=== PATIENT | male | born 1995 | race Caucasian/White ===

== ENCOUNTER 2021-12-10 19:07 | Inpatient (IN) ==
[2021-12-10] MEDS ORDERED: Lidocaine 1% 20 ML MDV INFILT ONE (19:46)
[2021-12-10] MEDS ORDERED: *HR* Propofol 200 MG/20 ML VIAL IVP ONE (20:24)
[2021-12-10] MEDS ORDERED: 0.9 % Sodium Chloride 1,000 ML ONE (20:33)
[2021-12-10] MEDS ORDERED: *HR* Midazolam HCl 2 MG/2 ML VIAL ONE (21:37)
[2021-12-10] MEDS ORDERED: *HR* Midazolam HCl 5 MG/ML VIAL IVP ONE (21:55)
[2021-12-10] MEDS ORDERED: diazePAM 10 MG/2 ML SYRINGE IVP ONE (22:07)
[2021-12-10] MEDS ORDERED: *HR* HYDROmorphone (PF) 1 MG/ML SYRINGE IVP ONE (22:08)
[2021-12-10 22:33] LABS: Basophils % 0.5 %; Eosinophils # 0.2 K/mcL (0.0-0.6); Eosinophils % 2.2 %; Hematocrit 46.7 % (37.5-50.1); Hemoglobin 15.6 g/dL (12.9-16.9); Immature Granulocytes % 0.4 % (0-4); Lymphocytes # 2.7 K/mcL (0.6-4.6); Lymphocytes % 31.3 %; Mean Corpuscular HGB Conc 33.4 g/dL (31.6-35.5); Mean Corpuscular Hemoglobin 29.3 pg (28.0-33.3); Mean Corpuscular Volume 87.6 fL (83.0-100.0); Mean Platelet Volume 9.9 fL (9.4-12.4); Monocytes # 0.6 K/mcL (0.0-1.3); Monocytes % 6.9 %; Platelet Count 221 K/mcL (140-400); Red Blood Count 5.33 M/mcL (4.19-5.50); Red Cell Distribution Width 12.8 % (11.5-14.5); Segmented Neutrophils % 58.7 %; White Blood Count 8.5 K/mcL (4.3-11.1)
[2021-12-10 22:53] LABS: BUN/Creatinine Ratio 15 (6-26); Blood Urea Nitrogen 14 mg/dL (6-20); Calcium 8.8 mg/dL (8.6-10.3); Carbon Dioxide 26 mEq/L (23-29); Chloride 107 mEq/L (98-107); Glucose 94 mg/dL (70-105); Osmolality,Calculated 290 (280-300); Sodium 140 mEq/L (136-145); eGFR For African Americans > 60 (> 60); eGFR For Non-African Americans > 60 (> 60)
[2021-12-10] MEDS ORDERED: Naloxone 0.4 MG/ML INJ IVP PRN (23:54)
[2021-12-10] MEDS ORDERED: Melatonin 3 MG TABLET PO PRN (23:54)
[2021-12-11] MEDS ORDERED: *HR* HYDROmorphone (PF) 1 MG/ML SYRINGE IVP ONE (00:03)
[2021-12-11 02:51] LABS: Hemoglobin 16.2 g/dL (12.9-16.9); Mean Corpuscular HGB Conc 33.8 g/dL (31.6-35.5); Mean Corpuscular Hemoglobin 29.7 pg (28.0-33.3); Mean Corpuscular Volume 88.1 fL (83.0-100.0); Mean Platelet Volume 10.4 fL (9.4-12.4); Platelet Count 242 K/mcL (140-400); Red Blood Count 5.45 M/mcL (4.19-5.50); Red Cell Distribution Width 12.8 % (11.5-14.5)
[2021-12-11 02:58] LABS: INR 1.2; Prothrombin Time 12.9 Seconds (9.4-12.1)
[2021-12-11 03:06] LABS: White Blood Count 15.7 K/mcL (4.3-11.1)
[2021-12-11 03:09] LABS: BUN/Creatinine Ratio 16 (6-26); Blood Urea Nitrogen 14 mg/dL (6-20); Carbon Dioxide 24 mEq/L (23-29); Chloride 107 mEq/L (98-107); Glucose 109 mg/dL (70-105); Osmolality,Calculated 289 (280-300); Potassium 4.1 mEq/L (3.5-5.1); Sodium 139 mEq/L (136-145); eGFR For African Americans > 60 (> 60); eGFR For Non-African Americans > 60 (> 60)
[2021-12-11] MEDS ORDERED: Ondansetron ODT 4 MG TAB.RAPDIS SL PRN (03:45)
[2021-12-11] MEDS ORDERED: Doxycycline 800 MG, Syringe LUER-LOK 1 EACH in 0.9 % Sodium Chloride 50 ML IX ONE (09:12)
[2021-12-11] MEDS ORDERED: *HR* FentaNYL (PF) 100 MCG/2 ML VIAL ONE ×2 (09:13→10:02)
[2021-12-11] MEDS ORDERED: *HR* Midazolam HCl 2 MG/2 ML VIAL ONE (09:14)
[2021-12-11] MEDS ORDERED: *HR* Propofol 200 MG/20 ML VIAL IVP ONE ×2 (09:15→10:06)
[2021-12-11] MEDS ORDERED: *HR* Rocuronium Bromide 50 MG/5 ML VIAL ONE (09:18)
[2021-12-11] MEDS ORDERED: Ondansetron 4 MG/2 ML VIAL ONE (09:18)
[2021-12-11] MEDS ORDERED: Lidocaine -MPF 2% 2 ML VIAL ONE (09:18)
[2021-12-11] MEDS ORDERED: Ketorolac 30 MG/ML VIAL ONE (09:58)
[2021-12-11] MEDS ORDERED: Sugammadex Sodium 200 MG/2 ML VIAL IV ONE (10:17)
[2021-12-11] MEDS ORDERED: *HR* HYDROMORPHONE 2 MG/ML VIAL ONE (10:23)
[2021-12-11] MEDS ORDERED: Naloxone 0.4 MG/ML INJ IVP PRN ×2 (10:49→11:45)
[2021-12-11] MEDS ORDERED: Ondansetron 4 MG/2 ML VIAL IVP PRN (10:49)
[2021-12-11] MEDS ORDERED: *HR* HYDROcodone/Acet 5/325 mg TABLET PO PRN ×3 (10:49→14:05)
[2021-12-11] MEDS ORDERED: 0.9 % Sodium Chloride 1,000 ML IVC SCH (11:00)
[2021-12-11] MEDS: *HR* HYDROmorphone (PF) 1 MG/ML SYRINGE IVP PRN ×4 (11:00→19:48)
[2021-12-11] MEDS: *HR* FentaNYL (PF) 100 MCG/2 ML VIAL IVP PRN ×2 (11:08→11:13)
[2021-12-11] MEDS ORDERED: Ringers Solution, Lactated 1,000 ML ONE (11:24)
[2021-12-11] MEDS: Ipratropium/Albuterol Neb 3 ML IH SCH ×6 (11:34→23:51)
[2021-12-11] MEDS ORDERED: Melatonin 3 MG TABLET PO PRN (11:45)
[2021-12-11] MEDS: 0.9 % Sodium Chloride 1,000 ML IVC SCH (12:03)
[2021-12-11] MEDS ORDERED: *HR* Heparin 5,000 UNIT/ML VIAL SQ SCH (14:00)
[2021-12-11] MEDS ORDERED: *HR* OxyCODONE Immed Rel 5 MG TABLET PO PRN (14:03)
[2021-12-11] MEDS ORDERED: Gabapentin 300 MG CAPSULE PO SCH (15:00)
[2021-12-11] MEDS: Gabapentin 300 MG CAPSULE PO SCH ×2 (15:43→19:51)
[2021-12-11] MEDS: *HR* Heparin 5,000 UNIT/ML VIAL SQ SCH ×2 (15:43→21:32)
[2021-12-11] MEDS: Ondansetron 4 MG/2 ML VIAL IVP PRN (16:10)
[2021-12-11] MEDS: Famotidine 20 MG TABLET PO SCH (19:50)
[2021-12-11] MEDS: Sennosides/Docusate Sodium TABLET PO SCH (19:51)
[2021-12-11] MEDS ORDERED: Famotidine 20 MG TABLET PO SCH (21:00)
[2021-12-11] MEDS ORDERED: Sennosides/Docusate Sodium TABLET PO SCH (21:00)
[2021-12-12] MEDS: 0.9 % Sodium Chloride 1,000 ML IVC SCH (00:26)
[2021-12-12] MEDS: Ondansetron 4 MG/2 ML VIAL IVP PRN (00:32)
[2021-12-12 00:50] LABS: Basophils % 0.1 %; Hematocrit 46.8 % (37.5-50.1); Hemoglobin 16.1 g/dL (12.9-16.9); Immature Granulocytes % 0.5 % (0-4); Lymphocytes # 1.9 K/mcL (0.6-4.6); Lymphocytes % 12.8 %; Mean Corpuscular HGB Conc 34.4 g/dL (31.6-35.5); Mean Corpuscular Hemoglobin 30.3 pg (28.0-33.3); Mean Corpuscular Volume 88.1 fL (83.0-100.0); Monocytes # 1.7 K/mcL (0.0-1.3); Monocytes % 11.4 %; Neutrophils # 11.1 K/mcL (1.6-8.9); Platelet Count 260 K/mcL (140-400); Red Blood Count 5.31 M/mcL (4.19-5.50); Red Cell Distribution Width 12.8 % (11.5-14.5); Segmented Neutrophils % 75.2 %; White Blood Count 14.8 K/mcL (4.3-11.1)
[2021-12-12 01:09] LABS: BUN/Creatinine Ratio 16 (6-26); Blood Urea Nitrogen 14 mg/dL (6-20); Calcium 9.5 mg/dL (8.6-10.3); Carbon Dioxide 26 mEq/L (23-29); Chloride 103 mEq/L (98-107); Glucose 129 mg/dL (70-105); Osmolality,Calculated 288 (280-300); Potassium 4.1 mEq/L (3.5-5.1); Sodium 138 mEq/L (136-145); eGFR For African Americans > 60 (> 60); eGFR For Non-African Americans > 60 (> 60)
[2021-12-12] MEDS: Ipratropium/Albuterol Neb 3 ML IH SCH ×6 (04:37→23:31)
[2021-12-12] MEDS: *HR* Heparin 5,000 UNIT/ML VIAL SQ SCH ×3 (06:44→21:38)
[2021-12-12] MEDS: *HR* HYDROmorphone (PF) 1 MG/ML SYRINGE IVP PRN ×2 (06:44→19:27)
[2021-12-12] MEDS: Sennosides/Docusate Sodium TABLET PO SCH ×2 (08:31→20:07)
[2021-12-12] MEDS: Famotidine 20 MG TABLET PO SCH ×2 (08:31→20:07)
[2021-12-12] MEDS ORDERED: SODIUM CHLORIDE 0.9% IVPB ONE (11:30)
[2021-12-12] MEDS ORDERED: DESMOPRESSIN ACETATE IVPB ONE (11:30)
[2021-12-13] MEDS: Ipratropium/Albuterol Neb 3 ML IH SCH ×3 (04:05→11:43)
[2021-12-13] MEDS: *HR* Heparin 5,000 UNIT/ML VIAL SQ SCH ×2 (06:08→13:46)
[2021-12-13 06:35] VITALS: TEMP 97.7
[2021-12-13] MEDS: Sennosides/Docusate Sodium TABLET PO SCH (08:14)
[2021-12-13] MEDS: Famotidine 20 MG TABLET PO SCH (08:14)
[2021-12-13 12:15] VITALS: O2SAT 97
[2021-12-13 13:34] VITALS: BP 134/83; PULSE 86
== END 2021-12-13 14:18 | disposition home or self-care (01) | DRG 120 ==
LOC: 2NNU 19:07 → EMEROOARM 19:07 → 2NNU 12-11 00:20 → SUATTDRO 12-11 11:40
PROVIDERS: ADMIT Internal Medicine; ATTEND Internal Medicine

== ENCOUNTER 2021-12-28 16:03 | Inpatient (IN) ==
[2021-12-28] MEDS ORDERED: Isovue-370 500 ML BOTTLE IVP ONE (16:58)
[2021-12-28] MEDS ORDERED: Morphine Sulfate 2 MG/ML SYRINGE IVP ONE (16:59)
[2021-12-28] MEDS ORDERED: Piperacillin/Tazobactam 3.375 GM in 0.9 % Sodium Chloride Mini Bag 100 ML IVPB ONE (16:59)
[2021-12-28 17:05] LABS: Basophils % 0.4 %; Eosinophils # 0.1 K/mcL (0.0-0.6); Eosinophils % 1.2 %; Hematocrit 44.3 % (37.5-50.1); Immature Granulocytes % 0.7 % (0-4); Lymphocytes # 2.4 K/mcL (0.6-4.6); Lymphocytes % 24.7 %; Mean Corpuscular HGB Conc 33.9 g/dL (31.6-35.5); Mean Corpuscular Hemoglobin 29.6 pg (28.0-33.3); Mean Corpuscular Volume 87.4 fL (83.0-100.0); Mean Platelet Volume 9.3 fL (9.4-12.4); Monocytes % 10.3 %; Neutrophils # 6.1 K/mcL (1.6-8.9); Platelet Count 359 K/mcL (140-400); Red Blood Count 5.07 M/mcL (4.19-5.50); Red Cell Distribution Width 13.1 % (11.5-14.5); Segmented Neutrophils % 62.7 %; White Blood Count 9.8 K/mcL (4.3-11.1)
[2021-12-28 17:12] LABS: INR 1.1; Prothrombin Time 12.1 Seconds (9.4-12.1)
[2021-12-28 17:15] LABS: Activated Partial Thrombo Time 36.1 Seconds (26.0-36.0)
[2021-12-28 17:21] LABS: BUN/Creatinine Ratio 19 (6-26); Blood Urea Nitrogen 15 mg/dL (6-20); Calcium 9.2 mg/dL (8.6-10.3); Carbon Dioxide 26 mEq/L (23-29); Chloride 102 mEq/L (98-107); Glucose 98 mg/dL (70-105); Osmolality,Calculated 285 (280-300); Potassium 3.7 mEq/L (3.5-5.1); Sodium 137 mEq/L (136-145); Troponin I < 0.03 ng/mL (< 0.04); eGFR For African Americans > 60 (> 60); eGFR For Non-African Americans > 60 (> 60)
[2021-12-28] MEDS ORDERED: Vancomycin 1,250 MG/262.5 ML IV.SOLN IVPB ONE (18:00)
[2021-12-28] MEDS ORDERED: Melatonin 3 MG TABLET PO PRN (18:46)
[2021-12-28] MEDS ORDERED: Naloxone 0.4 MG/ML INJ IVP PRN (18:46)
[2021-12-28] MEDS ORDERED: Ondansetron ODT 4 MG TAB.RAPDIS SL PRN (18:46)
[2021-12-28] MEDS ORDERED: Acetaminophen 325 MG TABLET PO PRN (18:46)
[2021-12-29 03:30] LABS: Hematocrit 41.7 % (37.5-50.1); Hemoglobin 13.7 g/dL (12.9-16.9); Immature Granulocytes % 0.7 % (0-4); Mean Corpuscular HGB Conc 32.9 g/dL (31.6-35.5); Mean Corpuscular Volume 88.3 fL (83.0-100.0); Mean Platelet Volume 9.5 fL (9.4-12.4); Platelet Count 323 K/mcL (140-400); Red Blood Count 4.72 M/mcL (4.19-5.50); Red Cell Distribution Width 13.1 % (11.5-14.5); Segmented Neutrophils % 50.7 %; White Blood Count 8.9 K/mcL (4.3-11.1)
[2021-12-29 03:31] LABS: Basophils # 0.1 K/mcL (0.0-0.2); Basophils % 0.7 %; Eosinophils # 0.2 K/mcL (0.0-0.6); Eosinophils % 2.5 %; Lymphocytes # 3.1 K/mcL (0.6-4.6); Lymphocytes % 35.1 %; Monocytes # 0.9 K/mcL (0.0-1.3); Monocytes % 10.3 %; Neutrophils # 4.5 K/mcL (1.6-8.9)
[2021-12-29 03:34] LABS: Prothrombin Time 11.6 Seconds (9.4-12.1)
[2021-12-29] MEDS: Vancomycin 1,250 MG/262.5 ML IV.SOLN IVPB SCH ×2 (03:43→11:33)
[2021-12-29 03:47] LABS: BUN/Creatinine Ratio 16 (6-26); Blood Urea Nitrogen 12 mg/dL (6-20); Calcium 8.5 mg/dL (8.6-10.3); Carbon Dioxide 26 mEq/L (23-29); Chloride 107 mEq/L (98-107); Glucose 104 mg/dL (70-105); Osmolality,Calculated 290 (280-300); Potassium 3.8 mEq/L (3.5-5.1); Sodium 140 mEq/L (136-145); eGFR For African Americans > 60 (> 60); eGFR For Non-African Americans > 60 (> 60)
[2021-12-29] MEDS ORDERED: Vancomycin 1,500 MG/265 ML IV.SOLN IVPB SCH (07:00)
[2021-12-29] MEDS: Piperacillin/Tazobactam 3.375 GM in 0.9 % Sodium Chloride Mini Bag 100 ML IVPB SCH ×4 (07:57→23:54)
[2021-12-29] MEDS: Vancomycin 1,500 MG/265 ML IV.SOLN IVPB SCH (19:36)
[2021-12-30] MEDS: Vancomycin 1,500 MG/265 ML IV.SOLN IVPB SCH ×2 (02:41→12:19)
[2021-12-30] MEDS: Piperacillin/Tazobactam 3.375 GM in 0.9 % Sodium Chloride Mini Bag 100 ML IVPB SCH (08:07)
[2021-12-30] MEDS ORDERED: *HR* Propofol 200 MG/20 ML VIAL IVP ONE (16:40)
[2021-12-30] MEDS ORDERED: *HR* Rocuronium Bromide 50 MG/5 ML VIAL ONE (16:44)
[2021-12-30] MEDS ORDERED: Ondansetron 4 MG/2 ML VIAL ONE (16:46)
[2021-12-30] MEDS ORDERED: Lidocaine HCL 4 ML Topical Solution (Laryng-O-Jet Kit Sterile Pak) TP ONE (16:46)
[2021-12-30] MEDS ORDERED: *HR* Midazolam HCl 2 MG/2 ML VIAL ONE (18:01)
[2021-12-30] MEDS ORDERED: *HR* FentaNYL (PF) 100 MCG/2 ML VIAL ONE (18:01)
[2021-12-30] MEDS ORDERED: Ketorolac 30 MG/ML VIAL ONE (18:50)
[2021-12-30] MEDS ORDERED: Acetaminophen 325 MG TABLET PO PRN (19:58)
[2021-12-30] MEDS ORDERED: Ondansetron ODT 4 MG TAB.RAPDIS SL PRN (19:58)
[2021-12-30] MEDS ORDERED: Melatonin 3 MG TABLET PO PRN (19:58)
[2021-12-30] MEDS ORDERED: Naloxone 0.4 MG/ML INJ IVP PRN (19:58)
[2021-12-31] MEDS: Piperacillin/Tazobactam 3.375 GM in 0.9 % Sodium Chloride Mini Bag 100 ML IVPB SCH ×2 (00:12→10:03)
[2021-12-31 02:56] LABS: Basophils % 0.2 %; Hematocrit 42.1 % (37.5-50.1); Hemoglobin 14.5 g/dL (12.9-16.9); Immature Granulocytes % 0.4 % (0-4); Lymphocytes % 9.2 %; Mean Corpuscular HGB Conc 34.4 g/dL (31.6-35.5); Mean Corpuscular Hemoglobin 29.9 pg (28.0-33.3); Mean Corpuscular Volume 86.8 fL (83.0-100.0); Mean Platelet Volume 9.6 fL (9.4-12.4); Monocytes # 0.2 K/mcL (0.0-1.3); Monocytes % 2.1 %; Neutrophils # 9.4 K/mcL (1.6-8.9); Platelet Count 384 K/mcL (140-400); Red Blood Count 4.85 M/mcL (4.19-5.50); Red Cell Distribution Width 12.7 % (11.5-14.5); Segmented Neutrophils % 88.1 %; White Blood Count 10.7 K/mcL (4.3-11.1)
[2021-12-31] MEDS ORDERED: Vancomycin 1,500 MG/265 ML IV.SOLN IVPB SCH (03:00)
[2021-12-31 03:16] LABS: BUN/Creatinine Ratio 18 (6-26); Blood Urea Nitrogen 14 mg/dL (6-20); Calcium 9.1 mg/dL (8.6-10.3); Carbon Dioxide 24 mEq/L (23-29); Chloride 106 mEq/L (98-107); Glucose 183 mg/dL (70-105); Magnesium 1.7 mg/dL (1.6-2.6); Osmolality,Calculated 293 (280-300); Phosphorous 3.3 mg/dL (2.7-4.5); Potassium 3.8 mEq/L (3.5-5.1); Sodium 139 mEq/L (136-145); eGFR For African Americans > 60 (> 60); eGFR For Non-African Americans > 60 (> 60)
[2021-12-31 05:03] LABS: Vancomycin,Trough 6 mcg/mL (5-10)
[2021-12-31] MEDS: Vancomycin 1,750 MG/517.5 ML IV.SOLN IVPB SCH ×2 (07:22→14:46)
[2021-12-31 11:35] VITALS: BP 128/62; PULSE 65; TEMP 98.4; O2SAT 99
== END 2021-12-31 16:33 | disposition home health service (06) | DRG 721 ==
LOC: EMEROOARM 16:03 → 2NENU 16:03
PROVIDERS: ADMIT Internal Medicine; ATTEND Internal Medicine